=== PATIENT | male | born 1965 | race Caucasian/White ===

== ENCOUNTER 2024-01-21 08:35 | Emergency (ER) | payer SELFPAY ==
[~2024-01-21] VITALS: Ht 162.6 cm; Wt 59.0 kg
[2024-01-21 08:43] VITALS: O2SAT 99
[2024-01-21 09:20] LABS: ALANINE AMINOTRANSFERASE 45 IU/L (10-49); ALBUMIN 4.1 g/dL (3.2-4.8); ASPARTATE AMINOTRANSFERASE 21 IU/L (<34); BILIRUBIN TOTAL 0.9 mg/dL (0.1-1.0); CALCIUM 8.7 mg/dL (8.7-10.4); CARBON DIOXIDE 26 mEq/L (21-32); CHLORIDE 103 mEq/L (98-107); CREATININE 1.1 mg/dL (0.6-1.3); POTASSIUM 4.1 mEq/L (3.5-5.1); PROTEIN TOTAL 6.9 g/dL (6.0-8.3); SODIUM 135 mEq/L (136-145); UREA NITROGEN BLOOD 17 mg/dL (9-23)
[2024-01-21 09:23] LABS: GLUCOSE 450 mg/dL (70-105)
[2024-01-21 09:29] LABS: BASOPHILS % 0.3 % (0.0-2.0); EOSINOPHILS % 0.6 % (0.0-5.0); HEMATOCRIT. 47.2 % (42.0-52.0); LYMPHOCYTES % 15.6 % (20.0-50.0); MEAN CORPUSCULAR HEMOGLOBIN 30.2 pg (28.0-32.0); MEAN CORPUSCULAR HGB CONC 33.9 g/dL (31.0-37.0); MEAN CORPUSCULAR VOLUME 89.1 fL (80.0-94.0); MEAN PLATELET VOLUME 8.6 fl (7.4-10.4); MONOCYTES % 5.8 % (2.0-8.0); NEUTROPHILS % 77.7 % (40.0-76.0); PLATELET 158 x1000/uL (130-400); WHITE BLOOD COUNT 10.1 x1000/uL (4.5-11.0)
[2024-01-21 10:13] LABS: BETA HYDROXYBUTYRATE 0.2 mMol/L (0.0-0.3)
[2024-01-21] MEDS ORDERED: METF-414 MT (10:34)
[2024-01-21] MEDS: INSULIN REGULAR (HUMULIN R) 300UNITS/3ML VIAL IV NR (10:39)
[2024-01-21] MEDS: SODIUM CHLORIDE 0.9% 1,000 ML IV NR (10:40)
[2024-01-21 11:00] LABS: CLARITY URINE CLEAR (CLEAR); COLOR URINE YELLOW (YELLOW); GLUCOSE URINE 3+ (NEGATIVE); KETONES URINE NEGATIVE (NEGATIVE); LEUKOCYTE ESTERASE URINE NEGATIVE (NEGATIVE); NITRITE URINE NEGATIVE (NEGATIVE); OCCULT BLOOD URINE NEGATIVE (NEGATIVE); PH URINE 5.5 (4.5-8.0); PROTEIN URINE NEGATIVE (NEGATIVE); SPECIFIC GRAVITY URINE 1.041 (1.005-1.030); UROBILINOGEN URINE 0.2 E.U./dL (0.2-1.0)
[2024-01-21 11:21] LABS: BACTERIA URINE RARE; RBC URINE NONE SEEN /hpf (0-2); SQUAMOUS EPITHELIAL CELL URINE NONE SEEN /lpf (RARE/1+); WBC URINE 0-2 /hpf (0-2); YEAST URINE NONE SEEN
[2024-01-21 12:00] VITALS: BP 137/80; PULSE 52; RESP 17; TEMP 98.4
== END 2024-01-21 12:42 | disposition home or self-care (01) ==
LOC: ER 08:35
DX: R73.9 Hyperglycemia, unspecified (principal); N20.0 Calculus of kidney
CPT/HCPCS: 80053; 81003; 82010; 82962; 85025; 36415; 74177; 96361; 96374; 99285; J1815; Z7610 ×2